=== PATIENT | male | born 1970 | race African-American/Black ===

== ENCOUNTER → 2019-08-23 | Outpatient (CLI) | payer MEDICAID ==
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
== END ==
LOC: RAD 17:13
PROVIDERS: ATTEND Nurse Practitioner Family
DX: R10.9 Unspecified abdominal pain (principal)
CPT/HCPCS: 74022